=== PATIENT | male | born 1960 | race Caucasian/White ===

== ENCOUNTER → 2017-03-20 | Outpatient (CLI) | payer OTHER ==
[2017-03-20 15:57] LABS: ADD MAN DIFF? NO
[2017-03-20 16:05] LABS: BASO # 0.1 x10^3/uL (0.0-0.2); BASO % 1 % (0-3); EOS # 0.1 x10^3/uL (0.0-0.7); EOS % 2 % (0-3); HEMATOCRIT 43.2 % (39.0-53.0); HEMOGLOBIN 14.8 g/dL (13.0-17.5); LYMPH # 2.2 x10^3/uL (1.0-4.8); LYMPH % 31 % (24-48); MEAN CORPUSCULAR HEMOGLOBIN 32 pg (25-35); MEAN CORPUSCULAR HGB CONC 34 g/dL (31-37); MEAN CORPUSCULAR VOLUME 95 fL (79-100); MONO # 0.5 x10^3/uL (0.0-1.1); MONO % 8 % (0-9); NEUT # 4.1 x10^3uL (1.8-7.7); NEUT % 59 % (31-73); PLATELET COUNT 290 x10^3/uL (140-400); RED BLOOD COUNT 4.56 x10^6/uL (4.30-5.70); RED CELL DISTRIBUTION WIDTH 12.8 % (11.5-14.5); WHITE BLOOD COUNT 6.9 x10^3/uL (4.0-11.0)
[2017-03-20 16:06] LABS: BILIRUBIN,URINE NEGATIVE (NEG); CLARITY,URINE CLEAR; COLOR,URINE YELLOW; GLUCOSE,URINE NEGATIVE (NEG); NITRITE,URINE NEGATIVE (NEG); PH,URINE 6.5; PROTEIN,URINE NEGATIVE (NEG-TRACE); UROBILINOGEN,URINE 0.2 mg/dL (0.2 mg/dL)
[2017-03-20 16:13] LABS: PARTIAL THROMBOPLASTIN TIME 24 SEC (24-38); PROTHROMBIN TIME PATIENT 12.1 SEC (11.7-14.0)
[2017-03-20 16:14] LABS: ALBUMIN 4.1 g/dL (3.4-5.0); ANION GAP 11 (6-14); BLOOD UREA NITROGEN 15 mg/dL (8-26); CALCIUM 9.1 mg/dL (8.5-10.1); CARBON DIOXIDE 29 mmol/L (21-32); CHLORIDE 101 mmol/L (98-107); GFR 77.3; GLUCOSE 104 mg/dL (70-99); POTASSIUM 3.9 mmol/L (3.5-5.1); SODIUM 141 mmol/L (136-145)
[2017-03-20 16:21] LABS: BACTERIA,URINE 0 /HPF (0-FEW); RBC,URINE 0 /HPF (0-2); WBC,URINE OCC /HPF (0-4)
[2017-03-20 17:18] LABS: SEDIMENTATION RATE 12 (0-15)
[2017-03-21 00:12] LABS: MRSA BY PCR Negative (Negative)
== END | disposition home or self-care (01) ==
LOC: SURGPAT 14:11
DX: Z01.818 Encounter for other preprocedural examination (principal); Z96.642 Presence of left artificial hip joint
CPT/HCPCS: 36415; 71046; 80048; 81001; 82040; 85025; 85610; 85651; 85730; 87641; 93005

== ENCOUNTER 2017-04-04 08:22 | Inpatient (IN) | payer OTHER ==
[~2017-04-04 08:22] MED LIST: CELECOXIB 200 MG CAPSULE. PO; HYDROcodone/APAP 7.5/325MG 1 TAB TABLET PO; KETOROLAC 30 MG, ROPIVacaine 0.5% PF 60 ML, EPINEPHrine 0.5 MG in IV NORMAL SALINE 100M... IV; LIDOCAINE 1% PF 2 ML VIAL. ID; ONDANSETRON PF 4 MG/2 ML VIAL. IV; fentaNYL PF VIAL 100 MCG/2 ML VIAL IV
[2017-04-04] MEDS: IV RINGERS,LACTATED 1000ML 1,000 ML IV (09:06)
[2017-04-04] MEDS ORDERED: PROPOFOL 20 ML IV (09:09)
[2017-04-04] MEDS ORDERED: DEXAMETHASONE SOD PHOS 20 MG/5 ML VIAL. (09:09)
[2017-04-04] MEDS ORDERED: FAMOTIDINE 20 MG/2 ML VIAL (09:09)
[2017-04-04] MEDS ORDERED: ONDANSETRON PF 4 MG/2 ML VIAL. (09:09)
[2017-04-04] MEDS ORDERED: LIDOCAINE 2% PF Vial for OR 5 ML VIAL. (09:09)
[2017-04-04] MEDS: SCOPOLAMINE 1.5MG PATCH. TD (09:10)
[2017-04-04] MEDS ORDERED: MIDAZOLAM HCL/PF 2 MG/2 ML VIAL. (09:11)
[2017-04-04] MEDS ORDERED: fentaNYL PF VIAL 100 MCG/2 ML VIAL ×2 (09:11→10:15)
[2017-04-04] MEDS ORDERED: ROCURONIUM 50 MG/5 ML VIAL. ×2 (09:11→10:48)
[2017-04-04] MEDS ORDERED: CALCIUM CARBONATE 500 MG TAB.CHEW PO (09:15)
[2017-04-04] MEDS ORDERED: DEXTROSE 50% 25 GM / 50ML DISP.SYRIN. IV (09:15)
[2017-04-04] MEDS ORDERED: PROCHLORPERAZINE 10 MG/2 ML VIAL. IV (09:15)
[2017-04-04] MEDS ORDERED: HYDROmorphone 2 MG/ML VIAL IVP (09:15)
[2017-04-04] MEDS ORDERED: MORPHINE SULFATE 2 MG/ML DISP.SYRIN. IV (09:15)
[2017-04-04] MEDS ORDERED: ZOLPIDEM 5 MG TABLET. PO (09:15)
[2017-04-04] MEDS ORDERED: traMADol 50 MG TABLET PO (09:15)
[2017-04-04] MEDS ORDERED: diphenhydrAMINE 50 MG/ML VIAL IV (09:15)
[2017-04-04] MEDS ORDERED: fentaNYL PF VIAL 100 MCG/2 ML VIAL IV ×2 (09:15)
[2017-04-04] MEDS ORDERED: HYDROmorphone 2 MG TABLET PO (09:15)
[2017-04-04] MEDS ORDERED: diphenhydrAMINE 50 MG/ML VIAL (09:45)
[2017-04-04] MEDS ORDERED: ePHEDrine PF IN SALINE 50 MG/5 ML DISP.SYRIN IV (09:53)
[2017-04-04] MEDS ORDERED: GLYCOPYRROLATE 1 MG/5 ML VIAL. (09:57)
[2017-04-04] MEDS: TRANEXAMIC ACID 1,000 MG in IV NS 50ML -- 1ST BAG INJ (09:58)
[2017-04-04] MEDS ORDERED: PHENYLEPHRINE in 0.9% NACL PF 1 MG/10 ML SYRINGE. IV (10:00)
[2017-04-04] MEDS ORDERED: DESFLURANE > 120 MINUTES IH (10:05)
[2017-04-04] MEDS: MORPHINE SULFATE 5 MG, KETOROLAC 30 MG, ROPIVacaine 0.5% PF 60 ML, EPINEPHrine 0.5 MG i... INT ART (11:09)
[2017-04-04] MEDS ORDERED: NEOSTIGMINE METHYLSULFATE 5 MG/5 ML SYRINGE. (11:21)
[2017-04-04] MEDS: TRANEXAMIC ACID 1,000 MG in IV NS 50ML -- 2ND BAG INJ (12:06)
[2017-04-04] MEDS ORDERED: KETOROLAC 30 MG/ML INJ FOR OR. INJ (12:30)
[2017-04-04] MEDS: PROCHLORPERAZINE 10 MG/2 ML VIAL. IV ×2 (12:53→13:02)
[2017-04-04] MEDS: fentaNYL PF VIAL 100 MCG/2 ML VIAL IV ×2 (12:54→13:03)
[2017-04-04] MEDS: MORPHINE SULFATE 4 MG/ML DISP.SYRIN. IV (12:55)
[2017-04-04] MEDS: IV DEXTROSE 5 %-0.45 % NACL 1,000 ML IV ×2 (13:22→21:00)
[2017-04-04 15:44] LABS: PROTHROMBIN TIME PATIENT 12.3 SEC (11.7-14.0)
[2017-04-04] MEDS: WARFARIN 7.5 MG TABLET. PO (16:47)
[2017-04-04] MEDS: FERROUS SULFATE 325 MG TABLET. PO (16:47)
[2017-04-04] MEDS ORDERED: oxyCODONE ER 10 MG TAB.ER.12H PO (18:00)
[2017-04-04] MEDS: KETOROLAC 30 MG, BUPIVACAINE MPF 0.25% 20 ML, EPINEPHrine 0.5 MG in TOTAL VOLUME SYRING... INT ART (18:27)
[2017-04-04] MEDS: CARVEDILOL 6.25 MG TABLET. PO (20:52)
[2017-04-04] MEDS: CELECOXIB 200 MG CAPSULE. PO (20:53)
[2017-04-04] MEDS: DULoxetine HCL 30 MG CAPSULE.DR PO (20:53)
[2017-04-04] MEDS: OXYBUTYNIN CHLORIDE 5 MG TABLET PO (20:53)
[2017-04-04] MEDS: clonazePAM 0.5 MG TABLET PO (20:53)
[2017-04-04] MEDS: LACTOBACILLUS RHAMNOSUS GG 1 CAPSULE. PO (20:53)
[2017-04-04] MEDS: GABAPENTIN 300 MG CAPSULE. PO (20:55)
[2017-04-04] MEDS: PRAZOSIN 1 MG CAPSULE. PO (20:55)
[2017-04-04] MEDS: MIRTAZAPINE 15 MG TABLET PO (20:55)
[2017-04-04] MEDS ORDERED: NON FORMULARY ITEM (Duloxetine Hcl (Cymbalta) 1 CAP) PO (21:00)
[2017-04-04] MEDS ORDERED: LEVOCARNITINE TARTRATE 500 MG PO (21:00)
[2017-04-05] MEDS: KETOROLAC 30 MG, BUPIVACAINE MPF 0.25% 20 ML, EPINEPHrine 0.5 MG in TOTAL VOLUME SYRING... INT ART (05:17)
[2017-04-05 05:48] LABS: HEMOGLOBIN 11.5 g/dL (13.0-17.5); MEAN CORPUSCULAR HEMOGLOBIN 32 pg (25-35); MEAN CORPUSCULAR HGB CONC 34 g/dL (31-37); MEAN CORPUSCULAR VOLUME 94 fL (79-100); PLATELET COUNT 230 x10^3/uL (140-400); RED BLOOD COUNT 3.61 x10^6/uL (4.30-5.70); RED CELL DISTRIBUTION WIDTH 13.2 % (11.5-14.5); WHITE BLOOD COUNT 11.6 x10^3/uL (4.0-11.0)
[2017-04-05] MEDS ORDERED: MAGNESIUM HYDROXIDE 2,400 MG/30 ML ORAL.SUSP. PO (06:00)
[2017-04-05 06:02] LABS: INR 1.1 (0.8-1.1); PROTHROMBIN TIME PATIENT 13.1 SEC (11.7-14.0)
[2017-04-05] MEDS: PANTOPRAZOLE 40 MG TABLET.DR. PO (07:29)
[2017-04-05] MEDS: GABAPENTIN 300 MG CAPSULE. PO ×3 (08:12→21:12)
[2017-04-05] MEDS: CELECOXIB 200 MG CAPSULE. PO ×2 (08:12→21:12)
[2017-04-05] MEDS: OXYBUTYNIN CHLORIDE 5 MG TABLET PO ×2 (08:12→21:12)
[2017-04-05] MEDS: DULoxetine HCL 30 MG CAPSULE.DR PO ×2 (08:12→21:11)
[2017-04-05] MEDS: SENNOSIDES/DOCUSATE 8.6/50MG TABLET. PO (08:12)
[2017-04-05] MEDS: FERROUS SULFATE 325 MG TABLET. PO ×2 (08:12→16:57)
[2017-04-05] MEDS: LACTOBACILLUS RHAMNOSUS GG 1 CAPSULE. PO ×2 (08:13→21:12)
[2017-04-05] MEDS: valACYclovir 500 MG TABLET. PO (08:13)
[2017-04-05] MEDS: TAMSULOSIN 0.4 MG CAP.ER.24H. PO (08:13)
[2017-04-05] MEDS: MULTIVITAMIN with MINERAL TABLET. PO (08:13)
[2017-04-05] MEDS: clonazePAM 0.5 MG TABLET PO ×2 (08:13→21:12)
[2017-04-05] MEDS: CARVEDILOL 6.25 MG TABLET. PO ×2 (08:17→16:58)
[2017-04-05] MEDS: LOSARTAN POTASSIUM 50 MG TABLET. PO (08:17)
[2017-04-05] MEDS: traMADol 50 MG TABLET PO ×2 (08:18→11:45)
[2017-04-05] MEDS: FLU VACC QS2017-18 (36MOS+)/PF 0.5 ML SYRINGE. VAX IM (15:35)
[2017-04-05] MEDS: PNEUMOC CONJ VACC 23-VALENT 0.5 ML VIAL. VAX IM (15:38)
[2017-04-05] MEDS ORDERED: BISACODYL 10 MG SUPP.RECT. PR (16:00)
[2017-04-05] MEDS: WARFARIN 5 MG TABLET. PO (16:58)
[2017-04-05] MEDS: HYDROcodone/APAP 5/325MG 1 TAB TABLET PO ×2 (16:58→21:15)
[2017-04-05] MEDS: PRAZOSIN 1 MG CAPSULE. PO (21:00)
[2017-04-05] MEDS: MIRTAZAPINE 15 MG TABLET PO (21:12)
[2017-04-05] MEDS: 0.9 % SODIUM CHLORIDE 10 ML DISP.SYRIN. IV (21:18)
[2017-04-06] MEDS: HYDROcodone/APAP 5/325MG 1 TAB TABLET PO ×3 (04:12→12:49)
[2017-04-06 05:33] LABS: HEMATOCRIT 33.4 % (39.0-53.0); HEMOGLOBIN 11.3 g/dL (13.0-17.5); MEAN CORPUSCULAR HGB CONC 34 g/dL (31-37)
[2017-04-06 05:39] LABS: INR 1.2 (0.8-1.1)
[2017-04-06] MEDS: PANTOPRAZOLE 40 MG TABLET.DR. PO (07:14)
[2017-04-06] MEDS: TAMSULOSIN 0.4 MG CAP.ER.24H. PO (07:52)
[2017-04-06] MEDS: valACYclovir 500 MG TABLET. PO (07:52)
[2017-04-06] MEDS: clonazePAM 0.5 MG TABLET PO (07:53)
[2017-04-06] MEDS: SENNOSIDES/DOCUSATE 8.6/50MG TABLET. PO (07:53)
[2017-04-06] MEDS: LACTOBACILLUS RHAMNOSUS GG 1 CAPSULE. PO (07:54)
[2017-04-06] MEDS: CELECOXIB 200 MG CAPSULE. PO (07:54)
[2017-04-06] MEDS: OXYBUTYNIN CHLORIDE 5 MG TABLET PO (07:54)
[2017-04-06] MEDS: MULTIVITAMIN with MINERAL TABLET. PO (07:55)
[2017-04-06] MEDS: DULoxetine HCL 30 MG CAPSULE.DR PO (07:55)
[2017-04-06] MEDS: GABAPENTIN 300 MG CAPSULE. PO ×2 (07:55→14:49)
[2017-04-06] MEDS: FERROUS SULFATE 325 MG TABLET. PO ×2 (07:55→17:05)
[2017-04-06] MEDS: CARVEDILOL 6.25 MG TABLET. PO ×2 (07:58→17:05)
[2017-04-06] MEDS: LOSARTAN POTASSIUM 50 MG TABLET. PO (08:00)
[2017-04-06] MEDS: WARFARIN 5 MG TABLET. PO (17:06)
== END 2017-04-06 19:30 | disposition home or self-care (01) | DRG 470 ==
LOC: OPSVCIP 08:22 → 4 SOUTHWST 14:45
PROC: 0SRB0JZ Replacement of Left Hip Joint with Synthetic Substitute, Open Approach (ICD-10-PCS; principal; 2017-04-04 09:33)
DX: M16.12 Unilateral primary osteoarthritis, left hip (principal); Z96.643 Presence of artificial hip joint, bilateral; F43.10 Post-traumatic stress disorder, unspecified; I10 Essential (primary) hypertension
CPT/HCPCS: 36415; 72170; 76000; 85014; 85018; 85027; 85610; 86850; 86900; 86901; 88304; 88311; 90686; 90732; 97116-GP; 97150-GO; 97150-GP; 97161-GP; 97165-GO; 97530-GP; 97535-GO; C1713; C1887; J0171; J0690; J0780; J1100; J1200; J1885; J2250; J2270; J2370; J2405; J2704; J2710; J2795; J3010; J3490; J7030; J7120; S0028